=== PATIENT | male | born 1950 | race Caucasian/White ===

== ENCOUNTER → 2016-11-10 | Outpatient (REF) | payer MEDICARE, OTHER ==
[2016-11-10 12:31] LABS: ALBUMIN/GLOBULIN RATIO 1.25 (1.00-1.93); ALKALINE PHOSPHATASE 56 U/L (45-117); ALT/SGPT 19 U/L (12-78); ANION GAP 5 MEQ/L (8-16); AST/SGOT 17 U/L (15-37); BILIRUBIN,TOTAL 1.3 MG/DL (0.2-1.0); BLOOD UREA NITROGEN 13 MG/DL (7-18); CALCIUM LEVEL 8.9 MG/DL (8.8-10.2); CARBON DIOXIDE LEVEL 31 MEQ/L (21-32); CHLORIDE LEVEL 105 MEQ/L (98-107); CHOLESTEROL LEVEL 181 MG/DL (<200); CREATININE FOR GFR 1.06 MG/DL (0.70-1.30); GLOMERULAR FILTRATION RATE > 60.0 (>49); GLUCOSE, FASTING 95 MG/DL (80-110); POTASSIUM SERUM 4.4 MEQ/L (3.5-5.1); SODIUM LEVEL 141 MEQ/L (136-145); TOTAL PROTEIN 7.2 GM/DL (6.4-8.2); TRIGLYCERIDES LEVEL 104 MG/DL (<150)
[2016-11-10 12:49] LABS: BASO % 0.5 % (0.0-1.0); EOS # 0.2 K/mm3 (0.0-0.50); EOS % 3.9 % (0.0-3.0); LARGE UNSTAINED CELL # 0.1 K/mm3 (0.0-0.4); LARGE UNSTAINED CELL % 1.1 % (0.0-4.0); LYMPH # 1.6 K/mm3 (1.5-4.5); LYMPH % 36.6 % (24.0-44.0); MEAN CORPUSCULAR HEMOGLOBIN 32.3 pg (27.0-33.0); MEAN CORPUSCULAR HGB CONC 35.4 g/dl (32.0-36.5); MEAN CORPUSCULAR VOLUME 91.4 fl (80.0-96.0); MONO # 0.2 K/mm3 (0.0-0.8); MONO % 5.8 % (0.0-5.0); NEUTROPHILS # 2.2 K/mm3 (1.8-7.7); NEUTROPHILS % 52.1 % (36.0-66.0); PLATELET COUNT, AUTOMATED 157 k/mm3 (150-450); RED CELL DISTRIBUTION WIDTH 13.1 % (11.5-14.5); WHITE BLOOD COUNT 4.2 K/mm3 (4.0-10.0)
== END ==
LOC: M LABDRAW1 11:42
PROVIDERS: ATTEND Family Medicine
DX: Z00.00 Encounter for general adult medical examination without abnormal findings (principal); E78.2 Mixed hyperlipidemia

== ENCOUNTER → 2016-11-25 | Outpatient (REF) | payer MEDICARE, OTHER | LOC: M LABDRAW1 10:51 | PROVIDERS: ATTEND Family Medicine | DX: E55.9 Vitamin D deficiency, unspecified (principal) ==

== ENCOUNTER 2017-10-02 21:59 | Emergency (ER) | payer MEDICARE, OTHER ==
[2017-10-02 22:54] LABS: KETONE, URINE AUTO RFX NEGATIVE (NEGATIVE); LEUKOCYTE ESTERASE UR AUTO RFX NEGATIVE (NEGATIVE); MUCUS, URINE RFX SMALL (NEGATIVE); NITRITE, URINE AUTO RFX NEGATIVE (NEGATIVE); RBC, URINE AUTO RFX TNTC /HPF (0-3); SQUAM EPITHELIAL CELL UR AURFX 0 /HPF (0-6); WBC, URINE AUTO RFX 1 /HPF (0-3)
[2017-10-03] MEDS: MORPHINE 2 MG/ML 1ML SYRINGE (J2270) IV (00:15)
[2017-10-03] MEDS: KETOROLAC 30 MG/ML VIAL (J1885) IV (00:15)
[2017-10-03] MEDS: ONDANSETRON 4MG/2ML VIAL (J2405) IV (00:15)
[2017-10-03 00:18] LABS: BASO % 0.5 % (0.0-1.0); EOS # 0.1 10^3/uL (0.0-0.50); EOS % 1.6 % (0.0-3.0); HEMATOCRIT 40.5 % (42.0-52.0); HEMOGLOBIN 14.3 g/dl (13.5-17.5); IMMATURE GRANULOCYTE % 0.3 % (0-3.0); LYMPH # 1.2 10^3/uL (1.5-4.5); LYMPH % 14.1 % (24.0-44.0); MEAN CORPUSCULAR HEMOGLOBIN 31.8 pg (27.0-33.0); MEAN CORPUSCULAR HGB CONC 35.3 g/dl (32.0-36.5); MEAN CORPUSCULAR VOLUME 90.2 fl (80.0-96.0); MONO # 0.7 10^3/uL (0.0-0.8); MONO % 7.5 % (0.0-5.0); NEUTROPHILS # 6.7 10^3/uL (1.8-7.7); PLATELET COUNT, AUTOMATED 152 10^3/uL (150-450); RED BLOOD COUNT 4.49 10^6/uL (4.30-6.10); RED CELL DISTRIBUTION WIDTH 12.8 % (11.5-14.5); WHITE BLOOD COUNT 8.8 10^3/uL (4.0-10.0)
[2017-10-03] MEDS: NS 1,000 ML IV (00:20)
[2017-10-03 00:30] LABS: PROTHROMBIN TIME 13.3 SECONDS (12.4-14.5)
[2017-10-03 00:44] LABS: ALBUMIN 3.8 GM/DL (3.2-5.2); ALBUMIN/GLOBULIN RATIO 1.15 (1.00-1.93); ALKALINE PHOSPHATASE 68 U/L (45-117); ALT/SGPT 22 U/L (12-78); ANION GAP 7 MEQ/L (8-16); AST/SGOT 25 U/L (7-37); BILIRUBIN,DIRECT 0.2 MG/DL (0.0-0.2); BILIRUBIN,TOTAL 0.8 MG/DL (0.2-1.0); BLOOD UREA NITROGEN 18 MG/DL (7-18); CALCIUM LEVEL 8.5 MG/DL (8.8-10.2); CARBON DIOXIDE LEVEL 26 MEQ/L (21-32); CHLORIDE LEVEL 107 MEQ/L (98-107); CREATININE FOR GFR 1.66 MG/DL (0.70-1.30); GLOMERULAR FILTRATION RATE 44.1 (>49); GLUCOSE, FASTING 97 MG/DL (70-100); LIPASE 137 U/L (73-393); POTASSIUM SERUM 3.9 MEQ/L (3.5-5.1); SODIUM LEVEL 140 MEQ/L (136-145); TOTAL PROTEIN 7.1 GM/DL (6.4-8.2)
[2017-10-03] MEDS: TAMSULOSIN 0.4 MG CAP PO (01:23)
[2017-10-03] MEDS: NORCO 5/325MG TABLET (BULK FOR ED) PO (01:23)
== END 2017-10-03 01:32 | disposition home or self-care (01) ==
LOC: M ED 10-03 01:32
DX: N20.1 Calculus of ureter (principal); Z87.442 Personal history of urinary calculi; N20.0 Calculus of kidney; K80.20 Calculus of gallbladder without cholecystitis without obstruction; Z88.0 Allergy status to penicillin
CPT/HCPCS: J2405

== ENCOUNTER → 2017-10-07 | Outpatient (CLI) | payer MEDICARE ==
[2017-10-07 18:20] LABS: ANION GAP 6 MEQ/L (8-16); BLOOD UREA NITROGEN 10 MG/DL (7-18); CALCIUM LEVEL 8.7 MG/DL (8.8-10.2); CARBON DIOXIDE LEVEL 31 MEQ/L (21-32); CHLORIDE LEVEL 106 MEQ/L (98-107); CREATININE FOR GFR 1.12 MG/DL (0.70-1.30); GLOMERULAR FILTRATION RATE > 60.0 (>49); GLUCOSE, FASTING 99 MG/DL (70-100); POTASSIUM SERUM 4.5 MEQ/L (3.5-5.1); SODIUM LEVEL 143 MEQ/L (136-145)
== END ==
LOC: M SMT 13:37
DX: N17.9 Acute kidney failure, unspecified (principal)
CPT/HCPCS: 80048

== ENCOUNTER → 2017-11-11 | Outpatient (CLI) | payer MEDICARE ==
[2017-11-11 14:40] LABS: BASO % 0.5 % (0.0-1.0); EOS # 0.2 10^3/uL (0.0-0.50); EOS % 3.7 % (0.0-3.0); HEMATOCRIT 44.3 % (42.0-52.0); HEMOGLOBIN 15.3 g/dl (13.5-17.5); IMMATURE GRANULOCYTE % 0.2 % (0-3.0); LYMPH # 1.3 10^3/uL (1.5-4.5); LYMPH % 30.7 % (24.0-44.0); MEAN CORPUSCULAR HEMOGLOBIN 31.8 pg (27.0-33.0); MEAN CORPUSCULAR HGB CONC 34.5 g/dl (32.0-36.5); MEAN CORPUSCULAR VOLUME 92.1 fl (80.0-96.0); MONO # 0.3 10^3/uL (0.0-0.8); MONO % 7.3 % (0.0-5.0); NEUTROPHILS # 2.5 10^3/uL (1.8-7.7); NEUTROPHILS % 57.6 % (36.0-66.0); PLATELET COUNT, AUTOMATED 168 10^3/uL (150-450); RED BLOOD COUNT 4.81 10^6/uL (4.30-6.10); RED CELL DISTRIBUTION WIDTH 12.7 % (11.5-14.5); WHITE BLOOD COUNT 4.3 10^3/uL (4.0-10.0)
[2017-11-11 15:01] LABS: FOLATE 9.8 NG/ML; VITAMIN B12 LEVEL 276 PG/ML
[2017-11-11 15:02] LABS: ALBUMIN 4.1 GM/DL (3.2-5.2); ALBUMIN/GLOBULIN RATIO 1.14 (1.00-1.93); ALKALINE PHOSPHATASE 81 U/L (45-117); ALT/SGPT 21 U/L (12-78); ANION GAP 8 MEQ/L (8-16); AST/SGOT 21 U/L (7-37); BILIRUBIN,TOTAL 1.1 MG/DL (0.2-1.0); BLOOD UREA NITROGEN 14 MG/DL (7-18); CALCIUM LEVEL 8.8 MG/DL (8.8-10.2); CARBON DIOXIDE LEVEL 28 MEQ/L (21-32); CHLORIDE LEVEL 107 MEQ/L (98-107); CREATININE FOR GFR 1.11 MG/DL (0.70-1.30); GLOMERULAR FILTRATION RATE > 60.0 (>49); GLUCOSE, FASTING 94 MG/DL (70-100); POTASSIUM SERUM 4.3 MEQ/L (3.5-5.1); RHEUMATOID FACTOR QUANT < 10.0 IU/ML (<15.0); SODIUM LEVEL 143 MEQ/L (136-145); THYROID STIMULATING HORMONE 0.592 uIU/ML (0.358-3.740); TOTAL PROTEIN 7.7 GM/DL (6.4-8.2)
[2017-11-11 15:03] LABS: ESTIMATED AVERAGE GLUCOSE 108 MG/DL (60-110); HEMOGLOBIN A1c 5.4 %
[2017-11-11 15:10] LABS: ERYTHROCYTE SEDIMENTATION RATE 13 mm/hr (0-20)
[2017-11-16 08:06] LABS: ANTI DOUBLE STRAND-DNA AB <1 IU/mL (0-9); ANTINUCLEAR ANTIBODIES DIRECT Negative (Negative); CERULOPLASMIN 24.8 mg/dL (16.0-31.0); COPPER PLASMA 111 ug/dL (72-166); IgG P18 AB Absent (.); IgG P23 AB Absent (.); IgG P28 AB Absent (.); IgG P30 AB Absent (.); IgG P39 AB Absent (.); IgG P41 AB Absent (.); IgG P45 AB Absent (.); IgG P58 AB Absent (.); IgG P66 AB Absent (.); IgG P93 AB Absent (.); IgM P23 AB Absent (.); IgM P39 AB Absent (.); IgM P41 AB Absent (.); LEAD BLOOD ADULT 2 ug/dL (0-19); LYME IgG WB INTERPRETATION Negative (.); LYME IgM WB INTERPRETATION Negative (.); MERCURY LEVEL 1.4 ug/L (0.0-14.9); SJOGREN'S ANTI SS-A <0.2 AI (0.0-0.9); SJOGREN'S ANTI SS-B <0.2 AI (0.0-0.9); VITAMIN B1 LEVEL WHOLE BLOOD 100.4 nmol/L (66.5-200.0); VITAMIN B6,PYRIDOXAL PHOSPHATE 6.9 ug/L (5.3-46.7); VITAMIN E(ALPHA TOCOPHEROL) 10.7 mg/L (9.0-29.0); VITAMIN E(GAMMA TOCOPHEROL) 2.6 mg/L (0.5-4.9)
[2017-11-16 10:24] LABS: DRVV SCREEN 46.4 SEC
[2017-11-16 10:32] LABS: PTT LUPUS TYPE ANTICOAG SCREEN 1.1 (0-1.2)
== END ==
LOC: M SMT 09:57
DX: G62.9 Polyneuropathy, unspecified (principal); Z79.899 Other long term (current) drug therapy
CPT/HCPCS: 82525

== ENCOUNTER → 2018-10-25 | Outpatient (CLI) | payer MEDICARE ==
[~2018-10-25] MED LIST: ACETAMINOPHEN-COD; FLOM0.4C39 PO; TYLE500T78 PO
[2018-10-25 13:14] LABS: BASO % 0.9 % (0.0-1.0); EOS # 0.2 10^3/uL (0.0-0.50); EOS % 3.7 % (0.0-3.0); HEMATOCRIT 45.7 % (42.0-52.0); HEMOGLOBIN 15.4 g/dl (13.5-17.5); LYMPH # 1.5 10^3/uL (1.5-4.5); LYMPH % 35.3 % (24.0-44.0); MEAN CORPUSCULAR HEMOGLOBIN 30.9 pg (27.0-33.0); MEAN CORPUSCULAR HGB CONC 33.7 g/dl (32.0-36.5); MEAN CORPUSCULAR VOLUME 91.6 fl (80.0-96.0); MONO # 0.4 10^3/uL (0.0-0.8); MONO % 8.6 % (0.0-5.0); NEUTROPHILS # 2.2 10^3/uL (1.8-7.7); NEUTROPHILS % 51.3 % (36.0-66.0); PLATELET COUNT, AUTOMATED 171 10^3/uL (150-450); RED BLOOD COUNT 4.99 10^6/uL (4.30-6.10); WHITE BLOOD COUNT 4.3 10^3/uL (4.0-10.0)
[2018-10-25 13:34] LABS: ALBUMIN 4.2 GM/DL (3.2-5.2); ALT/SGPT 35 U/L (12-78); BILIRUBIN,TOTAL 0.9 MG/DL (0.2-1.0); BLOOD UREA NITROGEN 16 MG/DL (7-18); CALCIUM LEVEL 9.1 MG/DL (8.8-10.2); CARBON DIOXIDE LEVEL 29 MEQ/L (21-32); CHLORIDE LEVEL 104 MEQ/L (98-107); CHOLESTEROL LEVEL 221 MG/DL (<200); CHOLESTEROL RISK RATIO 5.139 (<5); CREATININE FOR GFR 1.08 MG/DL (0.70-1.30); GLOMERULAR FILTRATION RATE > 60.0 (>49); GLUCOSE, FASTING 96 MG/DL (70-100); HDL CHOLESTEROL 43 MG/DL (>40); LDL CHOLESTEROL 153 MG/DL (<100); NON-HDL-C 178 MG/DL; POTASSIUM SERUM 4.5 MEQ/L (3.5-5.1); SODIUM LEVEL 140 MEQ/L (136-145); TOTAL PROTEIN 7.6 GM/DL (6.4-8.2); TRIGLYCERIDES LEVEL 125 MG/DL (<150)
== END ==
LOC: M SMT 09:06
PROVIDERS: ATTEND Family Medicine
DX: Z00.00 Encounter for general adult medical examination without abnormal findings (principal)

== ENCOUNTER → 2019-07-27 | Outpatient (REF) | payer MEDICARE ==
[2019-07-27 12:44] LABS: BASO % 0.9 % (0.0-1.0); EOS # 0.2 10^3/uL (0.0-0.5); EOS % 4.9 % (0.0-3.0); HEMATOCRIT 42.7 % (42.0-52.0); HEMOGLOBIN 14.6 g/dl (13.5-17.5); LYMPH # 1.3 10^3/uL (1.5-5.0); LYMPH % 38.1 % (24.0-44.0); MEAN CORPUSCULAR HEMOGLOBIN 31.9 pg (27.0-33.0); MEAN CORPUSCULAR HGB CONC 34.2 g/dl (32.0-36.5); MEAN CORPUSCULAR VOLUME 93.2 fl (80.0-96.0); MONO # 0.2 10^3/uL (0.0-0.8); NEUTROPHILS # 1.7 10^3/uL (1.5-8.5); NEUTROPHILS % 48.8 % (36.0-66.0); PLATELET COUNT, AUTOMATED 161 10^3/uL (150-450); RED BLOOD COUNT 4.58 10^6/uL (4.30-6.10); WHITE BLOOD COUNT 3.4 10^3/uL (4.0-10.0)
[2019-07-27 12:45] LABS: HEMOGLOBIN A1c 5.6 %
[2019-07-27 13:14] LABS: ALBUMIN 4.1 GM/DL (3.2-5.2); ALT/SGPT 20 U/L (12-78); BILIRUBIN,TOTAL 1.2 MG/DL (0.2-1.0); BLOOD UREA NITROGEN 9 MG/DL (7-18); CALCIUM LEVEL 9.3 MG/DL (8.8-10.2); CARBON DIOXIDE LEVEL 29 MEQ/L (21-32); CHLORIDE LEVEL 105 MEQ/L (98-107); CHOLESTEROL LEVEL 190 MG/DL (<200); CHOLESTEROL RISK RATIO 4.042 (<5); CREATININE FOR GFR 1.01 MG/DL (0.70-1.30); FREE T4 1.06 NG/DL (0.76-1.46); GLOMERULAR FILTRATION RATE > 60.0 (>42); GLUCOSE, FASTING 98 MG/DL (70-100); HDL CHOLESTEROL 47 MG/DL (>40); LDL CHOLESTEROL 128 MG/DL (<100); NON-HDL-C 143 MG/DL; POTASSIUM SERUM 4.3 MEQ/L (3.5-5.1); SODIUM LEVEL 139 MEQ/L (136-145); THYROID STIMULATING HORMONE 0.651 uIU/ML (0.358-3.740); TOTAL PROTEIN 7.3 GM/DL (6.4-8.2); TRIGLYCERIDES LEVEL 76 MG/DL (<150)
[2019-08-01 00:06] LABS: PSA TOTAL 0.5 ng/mL (0.0-4.0); VITAMIN D 1,25 DIHYDROXY 39.1 pg/mL (19.9-79.3)
== END ==
LOC: M LABDRAW1 09:35
PROVIDERS: ATTEND Physician Assistant
DX: R39.11 Hesitancy of micturition (principal); Z13.220 Encounter for screening for lipoid disorders; Z79.899 Other long term (current) drug therapy

== ENCOUNTER 2020-08-12 08:43 | Emergency (ER) | payer MEDICARE ==
[~2020-08-12] VITALS: Ht 177.8 cm; Wt 93.2 kg
[2020-08-12] MEDS ORDERED: ONDANSETRON 4MG/2ML VIAL IV ONE (09:40)
[2020-08-12] MEDS ORDERED: NS 1,000 ML IV SCH (09:40)
[2020-08-12] MEDS ORDERED: MORPHINE 4 MG/ML 1ML VIAL/SYRINGE (J2270) IV PRN (09:40)
[2020-08-12] MEDS ORDERED: KETOROLAC 30 MG/ML 1ML VIAL IV ONE (09:55)
--- NOTE | 2020-08-12 10:13 | REP ---
INDICATION: left renal colic. COMPARISON: Abdomen/pelvis CT of 10/02/2017. TECHNIQUE: Abdomen/pelvis CT without IV or bowel contrast. FINDINGS: On the study today there is a single nonobstructive left renal calculus. On the comparison study there are least 3 nonobstructive left renal calculi. There is left hydronephrosis and hydroureter as a change from the prior study. However, I am unable to identify a definite intraluminal left ureteral calculus today there are numerous calcifications posterolateral to the bladder in the pelvis, likely phleboliths and similar in the number and position to the prior study. I cannot find a definite intraluminal distal left ureteral calculus today. It may be that there will was a calculus that has passed. There are no bladder calculi. The hydronephrosis and hydroureter on the left could be from distal left ureteral spasm. A follow-up CT urogram with IV contrast might be worthwhile identifying the distal left ureter in relation to the pelvic calcifications. There are no right renal calculi today. The comparison study a suspect there were 2 tiny right renal calculi. These are no longer identified. There is no hydro no for fro cysts or hydroureter on the right. No right ureteral calculus is identified. The visualized lung gu are unremarkable. The unenhanced hepatic parenchyma is unremarkable. There are noncalcified gallbladder calculi as previously. The gallbladder is otherwise unremarkable. Pancreas, spleen, adrenals and abdominal aorta are unremarkable. The bowel and mesentery are unremarkable. Pelvis: There are occasional diverticula in the ascending colon and descending colon and sigmoid colon without CT evidence of diverticulitis. There is no pelvic ascites or adenopathy. The prostate appears enlarged, unchanged. IMPRESSION: Left hydronephrosis and hydroureter. I am unable to identify an intra ureteral calculus on the left. There are numerous phleboliths in the pelvis obscuring visualization. If felt clinically indicated, consider a CT urogram with IV contrast to better identify the distal left ureter in relation to the pelvic phleboliths. There are nonobstructive renal calculi as described. Cholelithiasis, unchanged. Diverticulosis without diverticulitis. <Electronically signed by Kuldip Muse > 08/12/20 [id number]
[2020-08-12] MEDS ORDERED: ISOVUE-370 76% 100ML VIAL As Ordered ONE (11:39)
--- NOTE | 2020-08-12 12:59 | REP ---
INDICATION: left urogram for HU/HN. COMPARISON: CT abdomen pelvis without IV contrast performed earlier today and CT abdomen pelvis without IV contrast dated 10/02/2017. TECHNIQUE: CT abdomen and pelvis with IV contrast, CT urogram protocol. FINDINGS: Contrast is identified on the current study within the renal calices and proximal and mid ureters bilaterally. However, there is no contrast in the distal left ureter there are 4 I am unable to identify the left ureter in relation to the multiple phleboliths in the pelvis as on the study previously today. The left ureter is again dilated and there is a left renal hydronephrosis. Therefore, I am again unable to determine if there is a calculus in the distal left ureter or if there is a stricture or spasm of the distal left ureter. Otherwise, there is no change from the study performed earlier today. IMPRESSION: There is again no intraluminal contrast in the distal left ureter on the CT urogram, therefore, I am unable to determine if there is a distal left ureteral calculus or if the left hydroureter is from fibrosis or spasm of the distal left ureter. This may require a retrograde pyelogram. <Electronically signed by Kuldip Muse > 08/12/20 [id number]
[2020-08-12] MEDS ORDERED: FLOM0.4C39 PO (13:32)
[2020-08-12] MEDS ORDERED: HYDR-3713 PO (13:32)
[2020-08-12] MEDS ORDERED: ONDA4TAB6 PO (13:32)
--- NOTE | 2020-08-12 13:45 | ED PDOC ---
Post-Departure Follow-Up neelima suggs and isadora faxed formal report of ct abd/p for fu Arian Hodges MD Aug 12, 2020 13:45
[2020-08-12 14:10] VITALS: BP 128/77
== END 2020-08-12 14:16 | disposition home or self-care (01) ==
LOC: M ED 08:43
DX: N20.1 Calculus of ureter (principal); R11.2 Nausea with vomiting, unspecified; K57.90 Diverticulosis of intestine, part unspecified, without perforation or abscess without bleeding; Z87.442 Personal history of urinary calculi; Z88.0 Allergy status to penicillin
CPT/HCPCS: 74176; 74177; 80047; 81001; 96361; 96374; 96375; 99283; J1885; J2270; J2405; Q9967

== ENCOUNTER 2020-08-14 07:42 | Observation (INO) | payer MEDICARE ==
[~2020-08-14] VITALS: Ht 177.8 cm; Wt 94.0 kg
[~2020-08-14 07:42] MED LIST changes: +HYDR-3713 PO; +ONDA4TAB6 PO
[2020-08-14] MEDS ORDERED: NS 1,000 ML IV ONE (08:15)
[2020-08-14] MEDS ORDERED: KETOROLAC 30 MG/ML 1ML VIAL IV ONE (08:15)
[2020-08-14] MEDS ORDERED: ONDANSETRON 4MG/2ML VIAL IV ONE (08:15)
[2020-08-14 08:35] LABS: BASO % 0.2 % (0.0-1.0); EOS % 0.5 % (0.0-3.0); HEMATOCRIT 41.6 % (42.0-52.0); HEMOGLOBIN 14.6 g/dl (13.5-17.5); LYMPH # 1.1 10^3/uL (1.5-5.0); LYMPH % 12.3 % (24.0-44.0); MEAN CORPUSCULAR HEMOGLOBIN 31.9 pg (27.0-33.0); MEAN CORPUSCULAR HGB CONC 35.1 g/dl (32.0-36.5); MEAN CORPUSCULAR VOLUME 90.8 fl (80.0-96.0); MONO % 6.1 % (2.0-8.0); NEUTROPHILS % 80.6 % (36.0-66.0); PLATELET COUNT, AUTOMATED 152 10^3/uL (150-450); RED BLOOD COUNT 4.58 10^6/uL (4.30-6.10); WHITE BLOOD COUNT 8.7 10^3/uL (4.0-10.0)
[2020-08-14 08:36] LABS: MONO # 0.5 10^3/uL (0.0-0.8)
[2020-08-14 08:59] LABS: ALBUMIN 3.8 GM/DL (3.2-5.2); BILIRUBIN,DIRECT 0.3 MG/DL (0.0-0.2); TOTAL PROTEIN 6.9 GM/DL (6.4-8.2)
--- NOTE | 2020-08-14 09:19 | REP ---
INDICATION: pain/swelling. COMPARISON: None. TECHNIQUE: High-resolution bilateral scrotal sonography. Doppler interrogation. FINDINGS: High-resolution scrotal sonography demonstrates no evidence of intratesticular mass lesion on either side. Testicular parenchyma is normal homogeneous. Right testis measures 5.1 x 2.5 x 3.6 cm. Left testicular dimensions are 4.8 x 2.6 x 3.4 cm. The right epididymis is unremarkable. There are multiple small epididymal cysts on the left the largest of which is 0.4 cm in greatest diameter. Testicular Doppler flow is preserved. Resistive indices in the testicles are 0.72 and 0.62 on the right and left respectively. There are some prominent venous channels in the left scrotum. These do not appear to dilate with Valsalva but may be a small left-sided varicocele. IMPRESSION: Possible small left-sided varicocele. Otherwise negative high-resolution bilateral scrotal sonography. Small epididymal cysts on the left noted incidentally. <Electronically signed by Orlin Pérez > 08/14/20 [id number]
--- NOTE | 2020-08-14 10:42 | REP ---
INDICATION: left calculus? still has pain. COMPARISON: Abdomen/pelvis CT studies dated 08/12/2020. TECHNIQUE: Multiple sonographic images of the kidneys and bladder. FINDINGS: The right kidney measures 10.0 x 4.9 x 5.3 cm. Left kidney measures 11.4 x 6.7 x 6.9 cm. The kidneys are normal size. Renal cortical echogenicity is normal bilaterally. There is no hydronephrosis on the right. There is hydronephrosis on the left, similar to the comparison CT studies. There are no renal cysts or masses. No renal calculi are identified by ultrasound. However, on the comparison CT studies there was a nonobstructive left renal calculus. No calculi are identified in the distal left ureter by ultrasound. There is question of a calculus in the proximal left ureter by ultrasound, however, no calculi are identified in the proximal left ureter on the comparison CT studies. The Doppler resistive index of the parenchymal arteries of the right kidney is 0.53 left kidney 0.57. Bladder: With color Doppler imaging neither the right nor the left ureteral jet could be identified into the bladder. No bladder wall nodules or masses are identified. IMPRESSION: Left hydronephrosis and hydroureter. No distal left ureteral calculus is identified by ultrasound. There is question of a calculus in the proximal left ureter by ultrasound, however, no calculus was identified in the proximal left ureter on the comparison CT studies. With Doppler ultrasound neither the right nor the left ureteral jet into the bladder could be identified. <Electronically signed by Kuldip Muse > 08/14/20 [id number]
[2020-08-14] MEDS ORDERED: ISOVUE-370 76% 100ML VIAL As Ordered ONE (11:20)
--- NOTE | 2020-08-14 12:11 | REP ---
INDICATION: with delayed images COMPARISON: 08/12/2020. TECHNIQUE: CT Scan of the abdomen and pelvis was performed with intravenous administration of 100 cc of Isovue 370, without oral contrast. Sagittal and coronal reconstruction images are performed. Images are obtained in the delayed excretory phase following contrast administration. FINDINGS: Lung bases: Unremarkable. Liver: Normal Gallbladder: The gallbladder is distended and contains gallstones.. Spleen: Normal. Adrenals: Normal. Pancreas: Normal. Kidneys: 2 subcentimeter cysts are seen in the mid right kidney without hydronephrosis. There is no contrast excretion into the left ureter. There is moderate left hydronephrosis and hydroureter. A small amount of contrast is seen in the left pelvocaliceal system. A small cyst is seen in the lower pole the left kidney. There is a 5 mm calculus in the distal left ureter.. Small and large bowel: There are multiple diverticula seen throughout the colon without evidence of bowel wall inflammation. Free fluid: None. Abdominal aorta: No aneurysm or dissection. Adenopathy: None. Appendix: Not inflamed. Osseous structures: Unremarkable. Pelvis: No mass. IMPRESSION: There is a 5 mm calculus in the distal left ureter causing moderate left hydroureteronephrosis. <Electronically signed by Kuldip Quintanilla > 08/14/20 1407
[2020-08-14] MEDS ORDERED: D5W/0.9% SODIUM CHLORIDE 1,000 ML IV SCH (12:29)
[2020-08-14] MEDS ORDERED: ONDANSETRON 4MG/2ML VIAL IV PRN ×2 (12:30→23:00)
[2020-08-14] MEDS ORDERED: KETOROLAC 30 MG/ML 1ML VIAL IV PRN (12:30)
[2020-08-14] MEDS ORDERED: MORPHINE 4 MG/ML 1ML VIAL/SYRINGE (J2270) IV PRN (12:30)
[2020-08-14] MEDS ORDERED: FLOM0.4C39 PO (12:37)
[2020-08-14] MEDS ORDERED: HYDR-3713 PO (12:37)
[2020-08-14] MEDS ORDERED: ONDA4TAB6 PO (12:37)
[2020-08-14 13:16] LABS: RSV AMPLIFICATION NEGATIVE (NEGATIVE)
[2020-08-14 15:20] VITALS: BP 113/93
--- NOTE | 2020-08-14 16:24 | HPEPDOC ---
General Date of Admission 08/14/20 Date of Service: Aug 14, 2020 Chief Complaint The patient is a 70-year-old male admitted with a reason for visit of Abd/Back Pain. Source: Patient, RN/MD History of Present Illness 70 year old male with h/o kidney stones on his right presented to the ED initially on 08/13/20 for left flank pain. He felt like he was having a kidney stone. CT scans then did not demonstrate the stone clearly . He was discharged home with flomax and norco. At home he took the pain meds as directed but it did not control the pain so he came back to the ED. Today at presentation his pain was 10/10, sharp crampy at the left lower quadrant and he was writhing in pain all over the bed. he recieved morphine and toradol with much improvement in pain . At my interview he just complained of a dull achiness at the left lower quadrant. He also complained of constipation. CT urogram showed There is a 5 mm calculus in the distal left ureter causing moderate left hydroureteronephrosis. he was admitted for renal colic with left ureteral stone causing left hydro nephrosis. Home Medications Scheduled Tamsulosin HCl (Flomax) 0.4 Mg Capsule, 0.4 MG PO DAILY, (Reported) Scheduled PRN Hydrocodone/Acetaminophen (Hydrocodone-Acetamin 5-325 mg) 1 Each Tablet, 1 TAB PO Q4H PRN for PAIN, (Reported) MDD 4 Ondansetron (Ondansetron Odt) 4 Mg Tab.rapdis, 4 MG PO Q6H PRN for NAUSEA OR VOMITING, (Reported) Allergies Coded Allergies: Penicillins (Verified Allergy, Intermediate, HIVES, 08/14/20) Past Medical History Medical History Kidney stones, HLD Surgical History Lumber Laminectomy skin cancer removal from left foot planter aspect, right inguinal hernia repair with mesh Family History Significant Family History: Heart disease (father) Social History * Smoker: former Smoker Alcohol: rarely Drugs: denies A-FIB/CHADSVASC A-FIB History Current/History of A-Fib/PAF?: No Review of Systems Constitutional: Denies: Chills, Fever, Night Sweats Eyes: Denies: Pain, Vision change ENT: Denies: Head Aches, Ear Pain, Dysphagia Skin: Denies: Rash, Lesions, Breakdown Pulmonary: Denies: Dyspnea, Cough Cardiovascular: Denies: Chest Pain, Palpitations, Orthopnea, Paroxysmal Noc. Dyspnea, Lt Headedness Gastrointestinal: Reports: Nausea, Abdominal Pain, Constipation Genitourinary: Denies: Dysuria, Frequency, Incontinence, Retention Physical Examination General Exam: Positive: Alert, Cooperative, No Acute Distress Eye Exam: Positive: PERRLA, Conjunctiva & lids normal, EOMI; Negative: Sclera icteric ENT Exam: Positive: Atraumatic, Mucous membr. moist/pink, Pharynx Normal Neck Exam: Positive: Supple; Negative: JVD, thyromegaly Chest Exam: Positive: Clear to auscultation, Normal air movement Heart Exam: Positive: Rate Normal, Regular Rhythm, Normal S1, Normal S2; Negative: Murmurs, Rubs Abdomen Exam: Positive: Normal bowel sounds, Soft, Tenderness (int he left lumber and left lower quadrant); Negative: Hepatospenomegaly Extremity Exam: Negative: Clubbing, Cyanosis, Edema Vital Signs Vital Signs Date Time Temp Pulse Resp B/P (MAP) Pulse Ox O2 Delivery O2 Flow Rate FiO2 08/14/20 12:32 97.7 63 22 142/68 (92) 97 Room Air Laboratory Data Labs 24H Laboratory Tests 2 08/14/20 08:20: Immature Granulocyte % (Auto) 0.3, Neutrophils (%) (Auto) 80.6H, Lymphocytes (%) (Auto) 12.3L, Monocytes (%) (Auto) 6.1, Eosinophils (%) (Auto) 0.5, Basophils (%) (Auto) 0.2, Neutrophils # (Auto) 7.0, Lymphocytes # (Auto) 1.1L, Monocytes # (Auto) 0.5, Eosinophils # (Auto) 0.0, Basophils # (Auto) 0.0, Nucleated Red Blood Cells % (auto) 0.0, Total Bilirubin 1.0, Direct Bilirubin 0.3H, Aspartate Amino Transf (AST/SGOT) 15, Alanine Aminotransferase (ALT/SGPT) 17, Alkaline Phosphatase 65, Total Protein 6.9, Albumin 3.8, Albumin/Globulin Ratio 1.2, Lipase 101 08/14/20 08:40: POC Glucose (Misc Panel) 122H, POC Sodium (Misc Panel) 141, POC Potassium (Misc Panel) 3.4L, POC Chloride (Misc Panel) 104, POC Total CO2 (Misc Panel) 24.0, POC Blood Urea Nitrogen (Misc Panel 14, POC Ionized Calcium (Misc Panel) 4.5, POC Creatinine (Misc Panel) 1.3, POC Hematocrit (Misc Panel) 41.0 08/14/20 08:49: Urine Color YELLOW, Urine Appearance CLEAR, Urine pH 5.0, Urine Specific [place] 1.015, Urine Protein NEGATIVE, Urine Glucose (UA) NEGATIVE, Urine Ketones TRACEH, Urine Blood 2+H, Urine Nitrite NEGATIVE, Urine Bilirubin NEGATIVE, Urine Urobilinogen 0.2, Urine Leukocyte Esterase NEGATIVE, Urine WBC (Auto) 2, Urine RBC (Auto) 5H, Urine Hyaline Casts (Auto) 0, Urine Bacteria (Auto) NEGATIVE, Urine Squamous Epithelial Cells 1, Urine Mucus (Auto) SMALL, Urine Sperm (Auto) CBC/BMP Laboratory Tests 08/14/20 08:20 Assessment/Plan 70 year old male with h/o kidney stones on his right presented to the ED initially on 08/13/20 for left flank pain. He felt like he was having a kidney stone. CT scans then did not demonstrate the stone clearly . He was discharged home with flomax and norco. At home he took the pain meds as directed but it did not control the pain so he came back to the ED. Today at presentation his pain was 10/10, sharp crampy at the left lower quadrant and he was writhing in pain all over the bed. he recieved morphine and toradol with much improvement in pain . At my interview he just complained of a dull achiness at the left lower quadrant. He also complained of constipation. CT urogram showed There is a 5 mm calculus in the distal left ureter causing moderate left hydroureteronephrosis. he was admitted for renal colic with left ureteral stone causing left hydronephrosis. Left ureteric stone with left hydropnephrosis pain control with morphine and toradol, NPO, IVF Dr Reese from Urology has been consulted. Plan / VTE VTE Prophylaxis Ordered?: Yes SANDRA OLIVO MD Aug 14, 2020 12:40
--- NOTE | 2020-08-14 17:49 | SMCUROLCON ---
Urology Consultation General Date of Consultation 08/14/20 Reason For Consultation This patient is seen for Hydronephrosis Of Left Kidney Obstructive Uropathy and distal left ureteral calculus History of Present Illness The patient is a 70-year-old male with a past medical history for right-sided renal calculi. He began having pain on the left flank and back area about 4 days ago after doing some work outside. He states that the pain continued to increase and finally presented to the emergency room where he was diagnosed with a hydronephrosis and no stone was seen at that time. He was sent home with osei jean baptiste but returned because of persistent and still worsening pain. This time I was contacted and a delayed CT was performed showing a distal left ureteral calculus with obstruction and hydronephrosis. Past Medical History Medical History Renal calculi Hyperlipidemia Surgical Hstory Skin cancer removal from left foot Right inguinal hernia repair Laminectomy Social History * Smoker: non-smoker Drugs: denies Medications Current Medications Current Medications Medications (Trade) Dose Ordered Sig/Gale Route PRN Reason Start Time Stop Time Status Last Admin Dose Admin Dextrose/Sodium Chloride 1,000 ml @ 100 mls/hr Q10H IV 08/14/20 12:29 08/14/20 13:16 Home Med (Med Rec Complete!) ASDIRECTED XX 08/14/20 12:40 08/14/20 12:40 DC Ketorolac Tromethamine (ToRADol) 15 mg Q6H PRN IV MILD/MODERATE PAIN (PS 1-7) 08/15/20 00:00 08/20/20 00:00 Ketorolac Tromethamine (ToRADol) 30 mg Q6H PRN IV MILD/MODERATE PAIN (PS 1-7) 08/14/20 12:30 08/14/20 23:59 Morphine Sulfate (Morphine Sulfate Inj) 4 mg Q4HP PRN IV SEVERE PAIN (PS 8-10) 08/14/20 12:30 Ondansetron HCl (ZOFRAN INJection) 4 mg Q4HP PRN IV NAUSEA OR VOMITING 08/14/20 12:30 08/14/20 13:28 Allergies Allergies: Coded Allergies: Penicillins (Verified Allergy, Intermediate, HIVES, 08/14/20) Review of Systems General: Reports: Normal Appetite; Denies: Fatigue, Malaise Constitutional: Denies: Fever, Chills, Sweats, Weakness, Malaise Eyes: Denies: Pain, Vision change ENT: Denies: Head Aches, Sore Throat, Epistaxis Skin: Denies: Rash, Lesions, Breakdown, Nail Changes Pulmonary: Denies: Dyspnea, Cough Cardiovascular: Denies Chest Pain, Denies Palpitations, Denies Orthopnea, Denies Paroxysmal Noc. Dyspnea, Denies Edema, Denies Lt Headedness, Denies Other Symptoms Gastrointestinal: Denies: Nausea, Vomiting, Abdominal Pain Genitourinary: Denies: Dysuria, Frequency, Incontinence, Hematuria Hematologic: Denies: Bruising, Bleeding Excessively Endocrine: Denies: Polydipsia, Polyphagia, Polyuria Musculoskeletal: Denies: Neck Pain, Back Pain Neurological: Denies: Weakness, Numbness, Incoordination, Change in Speech Psych: Reports: Mood Normal; Denies: Anxiety, Depression Physical Examination General Exam: Alert, No Acute Distress EYE EXAM: PERRLA, Conjunctiva & lids normal, EOMI; No: Sclera icteric ENT EXAM: Atraumatic, Mucous membr. moist/pink, Pharynx Normal Neck Exam: Supple; No: JVD, thyromegaly Chest Exam: Clear to auscultation, Normal air movement Heart Exam: Rate Normal, Regular Rhythm, Normal S1, Normal S2; No: Murmurs, Rubs Abdomen Exam: Normal Bowel Sounds, Soft; No: Tenderness, Hepatospenomegaly Male Exam: Normal Genital Exam Extremity Exam: Normal Pulses; No: Clubbing, Cyanosis, Edema Skin Exam: Nl turgor and temperature; No: Rash, Breakdown Neuro Exam: Normal Gait, Normal Speech, Cranial Nerves 3-12 NL, Reflexes 2+ Psych Exam: Mental status NL, Mood NL, Oriented x 3 Vital Signs/I&O Vital Signs Date Time Temp Pulse Resp B/P (MAP) Pulse Ox O2 Delivery O2 Flow Rate FiO2 08/14/20 15:20 97.4 63 18 113/93 (100) 98 Room Air Laboratory Data 24H Labs Laboratory Tests 2 08/14/20 08:20: Immature Granulocyte % (Auto) 0.3, Neutrophils (%) (Auto) 80.6H, Lymphocytes (%) (Auto) 12.3L, Monocytes (%) (Auto) 6.1, Eosinophils (%) (Auto) 0.5, Basophils (%) (Auto) 0.2, Neutrophils # (Auto) 7.0, Lymphocytes # (Auto) 1.1L, Monocytes # (Auto) 0.5, Eosinophils # (Auto) 0.0, Basophils # (Auto) 0.0, Nucleated Red Blood Cells % (auto) 0.0, Total Bilirubin 1.0, Direct Bilirubin 0.3H, Aspartate Amino Transf (AST/SGOT) 15, Alanine Aminotransferase (ALT/SGPT) 17, Alkaline Phosphatase 65, Total Protein 6.9, Albumin 3.8, Albumin/Globulin Ratio 1.2, Lipase 101 08/14/20 08:40: POC Glucose (Misc Panel) 122H, POC Sodium (Misc Panel) 141, POC Potassium (Misc Panel) 3.4L, POC Chloride (Misc Panel) 104, POC Total CO2 (Misc Panel) 24.0, POC Blood Urea Nitrogen (Misc Panel 14, POC Ionized Calcium (Misc Panel) 4.5, POC Creatinine (Misc Panel) 1.3, POC Hematocrit (Misc Panel) 41.0 08/14/20 08:49: Urine Color YELLOW, Urine Appearance CLEAR, Urine pH 5.0, Urine Specific [place] 1.015, Urine Protein NEGATIVE, Urine Glucose (UA) NEGATIVE, Urine Ketones TRA CEH, Urine Blood 2+H, Urine Nitrite NEGATIVE, Urine Bilirubin NEGATIVE, Urine Urobilinogen 0.2, Urine Leukocyte Esterase NEGATIVE, Urine WBC (Auto) 2, Urine RBC (Auto) 5H, Urine Hyaline Casts (Auto) 0, Urine Bacteria (Auto) NEGATIVE, Urine Squamous Epithelial Cells 1, Urine Mucus (Auto) SMALL, Urine Sperm (Auto) 08/14/20 12:31: Coronavirus (COVID-19)(PCR) NEGATIVE, Influenza Type A (RT-PCR) NEGATIVE, Influenza Type B (RT-PCR) NEGATIVE, Respiratory Syncytial Virus (PCR) NEGATIVE CBC/BMP Laboratory Tests 08/14/20 08:20 Assessment Obstructing distal left ureteral calculus Plan I discussed the options with the patient including observation, continued trying to pass the stone spontaneously or ureteroscopic intervention. He preferred to have ureteroscopy today to remove the stone because of the pain level. The advantages, alternatives, disadvantages and possible complications of infection, pain, bleeding, perforation and strictures were discussed. The stent will be inserted to be removed in the office in 2 weeks. Repeat these stipulations and understanding the possible complications and wishes to continue with the procedure. Time Spent on Consult: Time Spent / Consult (Minutes): 70 UMESH TAM MD Aug 14, 2020 17:49
[2020-08-14 20:25] VITALS: BP 160/77
[2020-08-14] MEDS ORDERED: propofoL 200 MG/20 ML VIAL As Ordered ONE (20:53)
[2020-08-14] MEDS ORDERED: LIDOCAINE 2% 100MG/5ML SDV (FOR ANES.) As Ordered ONE (20:53)
[2020-08-14] MEDS ORDERED: fentaNYL 100 MCG/2 ML INJECTION (J3010) As Ordered ONE (20:54)
[2020-08-14] MEDS ORDERED: MIDAZOLAM INJ 2MG/2ML VIAL (J2250 PER 1MG) As Ordered ONE (20:54)
[2020-08-14] MEDS ORDERED: CONRAY-60 60% 50ML VIAL (Q9961) As Ordered ONE (21:24)
[2020-08-14] MEDS ORDERED: dexameTHASONE 4 MG/ML 1ML VIAL (J1100 PER 1MG) As Ordered ONE (21:24)
[2020-08-14] MEDS ORDERED: ONDANSETRON 4MG/2ML VIAL As Ordered ONE (21:24)
[2020-08-14] MEDS ORDERED: ACETAMINOPHEN 1000MG 100ML IV BTL (OFIRMEV) (J0131 PER 10MG) As Ordered ONE (21:32)
[2020-08-14] MEDS ORDERED: ePHEDrine SULFATE 25 MG/5 ML(5MG/ML) SYRINGE As Ordered ONE (21:34)
[2020-08-14] MEDS ORDERED: ceFAZolin 2 GM/D5W 50 ML IV BAG (J0690 PER 500MG) As Ordered ONE (21:43)
--- NOTE | 2020-08-14 22:43 | ROOPDOC ---
[facility] Report Of Operation Report of Operation DATE OF PROCEDURE: 08/14/20 PREPROCEDURE DIAGNOSES: Left ureteral calculus POSTPROCEDURE DIAGNOSES: Same plus Bladder Tumor PROCEDURE: Cystoscopy, left retrograde pyelogram, ureteral dilation with Tylenol access sheath, ureteroscopic stone extraction, ureteral stent insertion, bladder biopsy with fulguration, fluoroscopy and x-ray interpretation SURGEON: Francois Reese MD NURSE MANAGER: None ANESTHESIA: Gen. ESTIMATED BLOOD LOSS: Approximately 5 mL. 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 He also had a very tight left ureteral orifice. PROCEDURE NOTE: . The procedure is indicated because patient was having recurrent strong bouts of pain from the left ureteral calculus DESCRIPTION OF PROCEDURE: Patient was placed on the table in supine position and given general anesthesia. He was then placed in lithotomy position, prepped with Betadine paint and draped in an aseptic manner. A timeout was then performed. A #21 [place] cystoscope was then inserted into the meatus and advanced under direct vision of a 30 lens to the bladder. Ureteral orifices were identified in the left ureteral orifice appeared small. At that same time, some raised, dc-colored tissue was identified lateral and superior to the left ureteral orifice. Upon closer examination, this was identified to be a transitional cell carcinoma. The rest of the bladder was then surveyed and no further tumor was found. A wire guide was then introduced into the left ureteral orifice. A second wire was attempted to be passed but because of the narrow lumen, this could not be accomplished. The ureteral orifice was then dilated with a tunnel dilator over this wire. The wire was then removed and a flexible ureteroscope was passed through the tunnel. The stone was encountered in the upper part of the distal ureter. He was trapped in a wire and successfully extracted intact. A short ureteroscope was then used to reinsert the wire and the scope was then removed. The cystoscope was passed over the wire and a 5 [place] double-J stent was passed over the wire which curled well in the renal pelvis and in the bladder when the wire was removed. A biopsy cup was then used to remove the tumor lateral to the orifice and the area was widely cauterized with a Bugbee cautery. The bladder was then drained, cystoscope was removed and the patient was awakened and sent to recovery room stable condition having tolerated the procedure well. Fluoroscopy was used throughout the case to identify the stone and place the instruments and stent. The stent can be removed in 2 weeks. FRANCOIS REESE MD Aug 14, 2020 22:42
[2020-08-14 22:45] VITALS: BP 141/74
[2020-08-14] MEDS ORDERED: LR 1,000 ML IV SCH ×2 (23:00→23:10)
[2020-08-14] MEDS ORDERED: oxyCODONE 5MG TAB PO PRN (23:00)
[2020-08-14] MEDS ORDERED: fentaNYL 100 MCG/2 ML INJECTION (J3010) IV PRN (23:00)
[2020-08-14] MEDS ORDERED: NORCO, ANEXSIA 5/325MG TABLET (HYDROcodone/ACETAMINOPHEN) PO PRN (23:10)
[2020-08-14 23:45] VITALS: BP 141/74
[2020-08-15] MEDS ORDERED: KETOROLAC 30 MG/ML 1ML VIAL IV PRN
[2020-08-15 00:15] VITALS: BP 131/70
[2020-08-15 04:45] VITALS: BP 116/59
[2020-08-15 07:04] LABS: ALBUMIN 3.6 GM/DL (3.2-5.2); ALT/SGPT 15 U/L (12-78); BILIRUBIN,TOTAL 0.9 MG/DL (0.2-1.0); BLOOD UREA NITROGEN 11 MG/DL (7-18); CALCIUM LEVEL 8.7 MG/DL (8.8-10.2); CARBON DIOXIDE LEVEL 24 MEQ/L (21-32); CHLORIDE LEVEL 109 MEQ/L (98-107); GLOMERULAR FILTRATION RATE > 60.0 (>42); GLUCOSE, FASTING 123 MG/DL (70-100); POTASSIUM SERUM 4.1 MEQ/L (3.5-5.1); SODIUM LEVEL 140 MEQ/L (136-145); TOTAL PROTEIN 6.9 GM/DL (6.4-8.2)
--- NOTE | 2020-08-15 08:33 | REP ---
INDICATION: LEFT URETERAL STONE. COMPARISON: Comparison CT study from earlier this date.. TECHNIQUE: Two views. 41 seconds of fluoroscopy time is reported. FINDINGS: A sequence of 2 last image hold fluoroscopically obtained spot radiographs of the abdomen document left ureteral cannulation and double-pigtail stent placement. IMPRESSION: Procedural imaging. <Electronically signed by Orlin Pérez > 08/15/20 [id number]
--- NOTE | 2020-08-15 11:44 | IPNPDOC ---
Subjective Date Seen The patient was seen on 08/15/20. Subjective Chief Complaint/HPI no complaints this morning except for hematuria as expected. Pain is controlled. ready to go home. Objective Physical Examination General Exam: Positive: Alert, Cooperative, No Acute Distress Eye Exam: Positive: PERRLA, Conjunctiva & lids normal, EOMI; Negative: Sclera icteric ENT Exam: Positive: Atraumatic, Mucous membr. moist/pink, Pharynx Normal Neck Exam: Positive: Supple; Negative: JVD, thyromegaly Chest Exam: Positive: Clear to auscultation, Normal air movement Heart Exam: Positive: Rate Normal, Regular Rhythm, Normal S1, Normal S2; Negative: Murmurs, Rubs Abdomen Exam: Positive: Normal bowel sounds, Soft, Tenderness (int he left lumber and left lower quadrant); Negative: Hepatospenomegaly Extremity Exam: Negative: Clubbing, Cyanosis, Edema Assessment /Plan Assessment 70 year old male with h/o kidney stones on his right presented to the ED initially on 08/13/20 for left flank pain. He felt like he was having a kidney stone. CT scans then did not demonstrate the stone clearly . He was discharged home with flomax and norco. At home he took the pain meds as directed but it did not control the pain so he came back to the ED. Today at presentation his pain was 10/10, sharp crampy at the left lower quadrant and he was writhing in pain all over the bed. he recieved morphine and toradol with much improvement in pain . At my interview he just complained of a dull achiness at the left lower quadrant. He also complained of constipation. CT urogram showed There is a 5 mm calculus in the distal left ureter causing moderate left hydroureteronephrosis. he was admitted for renal colic with left ureteral stone causing left hydronephrosis. Left ureteric stone with left hydronephrosis has h/o renal stones for years. S/p Cystoscopy, left retrograde pyelogram, ureteral dilation with Tylenol access sheath, ureteroscopic stone extraction, ureteral stent insertion, bladder biopsy with fulguration, fluoroscopy and x-ray interpretation follow up with urology in 2 weeks for stent removal and biopsy results and stone results. Pain control with [place]. continue flomax. 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 follow up urology HLD not on any meds KRISTEL mild was never prescribed CPAP. Plan/VTE VTE Prophylaxis Ordered?: Yes VS, I&O, 24H, Fishbone Vital Signs/I&O Vital Signs Date Time Temp Pulse Resp B/P (MAP) Pulse Ox O2 Delivery O2 Flow Rate FiO2 08/15/20 04:45 97.7 71 18 116/59 (78) 96 Room Air I&O- Last 24 Hours up to 6 AM 08/15/20 06:00 Intake Total 2400 ml Balance 2400 ml Laboratory Data 24H LABS Laboratory Tests 2 08/14/20 12:31: Coronavirus (COVID-19)(PCR) NEGATIVE, Influenza Type A (RT-PCR) NEGATIVE, Influenza Type B (RT-PCR) NEGATIVE, Respiratory Syncytial Virus (PCR) NEGATIVE 08/14/20 22:07: 08/15/20 06:13: Anion Gap 7L, Glomerular Filtration Rate > 60.0, Calcium Level 8.7L, Total Bilirubin 0.9, Aspartate Amino Transf (AST/SGOT) 17, Alanine Aminotransferase (ALT/SGPT) 15, Alkaline Phosphatase 65, Total Protein 6.9, Albumin 3.6, Albumin/Globulin Ratio 1.1 CBC/BMP Laboratory Tests 08/15/20 06:13 SANDRA OLIVO MD Aug 15, 2020 11:44
[2020-08-22 21:07] LABS: Ca Ox Monohydrate 100 % (.); Size 4x3 mm (.)
== END 2020-08-15 11:30 | disposition home or self-care (01) ==
LOC: M ED 07:42 → M ED INP 07:43 → ENRESERV 14:09 → M MS5PR 15:25
PROVIDERS: ADMIT Internal Medicine Nephrology; ATTEND Internal Medicine Nephrology
DX: N20.1 Calculus of ureter (principal); C67.9 Malignant neoplasm of bladder, unspecified; N13.39 Other hydronephrosis; N50.811 Right testicular pain; N50.89 Other specified disorders of the male genital organs; R10.30 Lower abdominal pain, unspecified; E78.5 Hyperlipidemia, unspecified; G47.33 Obstructive sleep apnea (adult) (pediatric); Z87.442 Personal history of urinary calculi; Z88.0 Allergy status to penicillin; Z79.899 Other long term (current) drug therapy; Z87.891 Personal history of nicotine dependence
CPT/HCPCS: 36415; 52234; 52332; 52352; 74177; 74420; 76775; 76870; 80047; 80053; 80076; 81001; 82365; 83690; 85025; 87631; 88300; 88305; 93976; 96361; 96374; 96375; 96376; 99284; C1769; C1894; C2617; G0378; J0131; J0690; J1100; J1885; J2250; J2405; J3010; Q9961; Q9967

== ENCOUNTER → 2020-12-02 | Outpatient (REF) | payer MEDICARE, BC | LOC: M SMT 18:28 | PROVIDERS: ATTEND Urology | DX: C67.9 Malignant neoplasm of bladder, unspecified (principal) ==

== ENCOUNTER → 2021-02-26 | Outpatient (CLI) | payer MEDICARE, BC | LOC: M PLALAB 07:18 | PROVIDERS: ATTEND Urology | DX: Z12.5 Encounter for screening for malignant neoplasm of prostate (principal) | CPT/HCPCS: 36415; G0103 ==

== ENCOUNTER → 2021-03-07 | Outpatient (REF) | payer MEDICARE, BC | LOC: M SMT 18:38 | PROVIDERS: ATTEND Urology | DX: C67.9 Malignant neoplasm of bladder, unspecified (principal) ==

== ENCOUNTER → 2021-06-09 | Outpatient (REF) | payer MEDICARE | LOC: M SMT 17:11 | PROVIDERS: ATTEND Urology | DX: C67.9 Malignant neoplasm of bladder, unspecified (principal) ==

== ENCOUNTER → 2021-09-08 | Outpatient (REF) | payer MEDICARE | LOC: M SMT 13:20 | PROVIDERS: ATTEND Urology | DX: C67.9 Malignant neoplasm of bladder, unspecified (principal) ==

== ENCOUNTER → 2021-12-02 | Outpatient (CLI) | payer MEDICARE ==
[2021-12-02 11:14] LABS: BASO % 0.8 % (0.0-1.0); EOS # 0.1 10^3/uL (0.0-0.5); EOS % 2.8 % (0.0-3.0); HEMATOCRIT 45.1 % (42.0-52.0); HEMOGLOBIN 15.3 g/dl (13.5-17.5); LYMPH # 1.7 10^3/uL (1.5-5.0); LYMPH % 33.7 % (24.0-44.0); MEAN CORPUSCULAR HGB CONC 33.9 g/dl (32.0-36.5); MEAN CORPUSCULAR VOLUME 91.5 fl (80.0-96.0); MONO # 0.4 10^3/uL (0.0-0.8); MONO % 7.1 % (2.0-8.0); NEUTROPHILS # 2.7 10^3/uL (1.5-8.5); NEUTROPHILS % 55.2 % (36.0-66.0); PLATELET COUNT, AUTOMATED 162 10^3/uL (150-450); RED BLOOD COUNT 4.93 10^6/uL (4.30-6.10)
[2021-12-02 13:05] LABS: ALBUMIN 3.8 GM/DL (3.2-5.2); ALT/SGPT 19 U/L (12-78); BILIRUBIN,TOTAL 0.8 MG/DL (0.2-1.0); BLOOD UREA NITROGEN 15 MG/DL (7-18); CALCIUM LEVEL 8.9 MG/DL (8.8-10.2); CARBON DIOXIDE LEVEL 28 MEQ/L (21-32); CHLORIDE LEVEL 106 MEQ/L (98-107); CHOLESTEROL LEVEL 171 MG/DL (<200); CHOLESTEROL RISK RATIO 3.886 (<5); CREATININE FOR GFR 1.11 MG/DL (0.70-1.30); FREE T4 1.06 NG/DL (0.76-1.46); GLOMERULAR FILTRATION RATE > 60.0 (>42); GLUCOSE, FASTING 100 MG/DL (70-100); HDL CHOLESTEROL 44 MG/DL (>40); LDL CHOLESTEROL 116 MG/DL (<100); NON-HDL-C 127 MG/DL; POTASSIUM SERUM 4.5 MEQ/L (3.5-5.1); SODIUM LEVEL 138 MEQ/L (136-145); THYROID STIMULATING HORMONE 0.713 uIU/ML (0.358-3.740); TOTAL PROTEIN 7.4 GM/DL (6.4-8.2); TRIGLYCERIDES LEVEL 57 MG/DL (<150)
[2021-12-03 23:10] LABS: PSA TOTAL 3.6 ng/mL (0.0-4.0)
== END ==
LOC: M PLALAB 08:47
PROVIDERS: ATTEND Family Medicine
DX: K21.9 Gastro-esophageal reflux disease without esophagitis (principal); Z85.51 Personal history of malignant neoplasm of bladder; E78.5 Hyperlipidemia, unspecified

== ENCOUNTER → 2022-03-16 | Outpatient (REF) | payer MEDICARE | LOC: M SMT 12:58 | PROVIDERS: ATTEND Urology | DX: C67.9 Malignant neoplasm of bladder, unspecified (principal) ==

== ENCOUNTER → 2022-03-23 | Outpatient (REF) | payer MEDICARE | LOC: M PLALAB 13:00 | PROVIDERS: ATTEND Urology | DX: Z12.5 Encounter for screening for malignant neoplasm of prostate (principal) | CPT/HCPCS: 36415; G0103 ==

== ENCOUNTER → 2022-12-09 | Outpatient (CLI) | payer MEDICARE ==
[2022-12-09 11:44] LABS: BASO % 0.7 % (0.0-1.0); EOS # 0.2 10^3/uL (0.0-0.5); EOS % 3.7 % (0.0-3.0); HEMATOCRIT 43.7 % (42.0-52.0); HEMOGLOBIN 15.2 g/dl (13.5-17.5); LYMPH # 1.8 10^3/uL (1.5-5.0); LYMPH % 38.3 % (24.0-44.0); MEAN CORPUSCULAR HEMOGLOBIN 32.8 pg (27.0-33.0); MEAN CORPUSCULAR HGB CONC 34.8 g/dl (32.0-36.5); MEAN CORPUSCULAR VOLUME 94.2 fl (80.0-96.0); MONO # 0.3 10^3/uL (0.0-0.8); MONO % 7.2 % (2.0-8.0); NEUTROPHILS # 2.3 10^3/uL (1.5-8.5); NEUTROPHILS % 49.9 % (36.0-66.0); PLATELET COUNT, AUTOMATED 157 10^3/uL (150-450); RED BLOOD COUNT 4.64 10^6/uL (4.30-6.10); WHITE BLOOD COUNT 4.6 10^3/uL (4.0-10.0)
[2022-12-09 12:16] LABS: FREE T4 0.95 NG/DL (0.89-1.76)
[2022-12-09 12:17] LABS: ALBUMIN 4.2 G/DL (3.2-5.2); ALKALINE PHOSPHATASE 63 U/L (46-116); ALT/SGPT 14 U/L (7.0-40); AST/SGOT 15 U/L (<34); BILIRUBIN,TOTAL 1.5 MG/DL (0.3-1.2); BLOOD UREA NITROGEN 11 MG/DL (9-23); CALCIUM LEVEL 9.1 MG/DL (8.3-10.6); CARBON DIOXIDE LEVEL 28 MMOL/L (20-31); CHLORIDE LEVEL 105 MMOL/L (98-107); CHOLESTEROL LEVEL 187 MG/DL (<200); CREATININE FOR GFR 0.96 MG/DL (0.70-1.30); GLOMERULAR FILTRATION RATE > 60.0 (>42); GLUCOSE, FASTING 93 MG/DL (74-106); HDL CHOLESTEROL 49.1 MG/DL (>40); LDL CHOLESTEROL 122.1 MG/DL (<100); NON-HDL-C 137.9 MG/DL; POTASSIUM SERUM 4.3 MMOL/L (3.5-5.1); SODIUM LEVEL 141 MMOL/L (136-145); THYROID STIMULATING HORMONE 1.019 uIU/ML (0.55-4.78); TOTAL PROTEIN 7.1 G/DL (5.7-8.2); TRIGLYCERIDES LEVEL 79 MG/DL (<150)
[2022-12-10 23:07] LABS: PSA TOTAL 0.6 ng/mL (0.0-4.0)
== END ==
LOC: M PLALAB 09:19
PROVIDERS: ATTEND Nurse Practitioner Adult Health
DX: E78.5 Hyperlipidemia, unspecified (principal); G47.39 Other sleep apnea; Z12.5 Encounter for screening for malignant neoplasm of prostate

== ENCOUNTER 2023-09-18 10:20 | Emergency (ER) | payer MEDICARE ==
[~2023-09-18] VITALS: Ht 177.8 cm; Wt 84.1 kg
[2023-09-18] MEDS: NS 1,000 ML IV ONE (11:08)
[2023-09-18 11:12] LABS: HEMOGLOBIN 14.5 g/dl (13.5-17.5); LYMPH # 0.7 10^3/uL (1.5-5.0); LYMPH % 10.3 % (24.0-44.0); MEAN CORPUSCULAR HEMOGLOBIN 31.4 pg (27.0-33.0); MEAN CORPUSCULAR HGB CONC 35.4 g/dl (32.0-36.5); MEAN CORPUSCULAR VOLUME 88.7 fl (80.0-96.0); MONO # 0.4 10^3/uL (0.0-0.8); NEUTROPHILS # 6.1 10^3/uL (1.5-8.5); NEUTROPHILS % 84.4 % (36.0-66.0); PLATELET COUNT, AUTOMATED 146 10^3/uL (150-450); RED BLOOD COUNT 4.62 10^6/uL (4.30-6.10); WHITE BLOOD COUNT 7.2 10^3/uL (4.0-10.0)
[2023-09-18] MEDS: ACETAMINOPHEN TAB 650MG DOSE (2X325MG) PO ONE (11:19)
[2023-09-18 11:36] LABS: LDH LACTATE DEHYDROGENASE 245 U/L (120-246)
[2023-09-18 11:37] LABS: ALBUMIN 3.4 G/DL (3.2-5.2); ALKALINE PHOSPHATASE 63 U/L (46-116); ALT/SGPT 20 U/L (7.0-40); AST/SGOT 42 U/L (<34); BILIRUBIN,TOTAL 1.1 MG/DL (0.3-1.2); BLOOD UREA NITROGEN 15 MG/DL (9-23); CALCIUM LEVEL 8.3 MG/DL (8.3-10.6); CARBON DIOXIDE LEVEL 23 MMOL/L (20-31); CHLORIDE LEVEL 104 MMOL/L (98-107); CREATININE FOR GFR 0.98 MG/DL (0.70-1.30); GLOMERULAR FILTRATION RATE > 60.0 (>42); GLUCOSE, FASTING 126 MG/DL (74-106); MAGNESIUM LEVEL 1.7 MG/DL (1.8-2.4); POTASSIUM SERUM 3.7 MMOL/L (3.5-5.1); SODIUM LEVEL 140 MMOL/L (136-145); TOTAL PROTEIN 6.5 G/DL (5.7-8.2)
[2023-09-18 11:39] LABS: FERRITIN 1236.6 NG/ML (10.5-307.3)
[2023-09-18 11:43] LABS: PROCALCITONIN 0.13 ng/ml
[2023-09-18] MEDS ORDERED: DOXY100C82 PO (15:21)
[2023-09-18 15:30] VITALS: BP 130/70; TEMP 99.4; O2SAT 95
[2023-09-18] MEDS: DOXYCYCLINE HYCLATE 100MG TABLET PO ONE (15:30)
[2023-09-21] MEDS ORDERED: DOXY-443 PO (11:17)
== END 2023-09-18 15:39 | disposition home or self-care (01) ==
LOC: M ED 10:20 → EDBD 10:20 → M ED 15:39
DX: U07.1 COVID-19 (principal); R11.0 Nausea; R19.7 Diarrhea, unspecified; J18.9 Pneumonia, unspecified organism; F17.210 Nicotine dependence, cigarettes, uncomplicated; Z88.0 Allergy status to penicillin; Z79.1 Long term (current) use of non-steroidal anti-inflammatories (NSAID); Z79.2 Long term (current) use of antibiotics; Z79.899 Other long term (current) drug therapy

== ENCOUNTER 2023-09-21 07:37 | Inpatient (IN) | payer MEDICARE ==
[~2023-09-21] VITALS: Ht 177.8 cm; Wt 84.9 kg
[2023-09-21] VITALS (11 sets, daily range): BP systolic 121–136; BP diastolic 71–75; TEMP 97.9–98.6; O2SAT 84–99
[~2023-09-21 07:37] MED LIST changes: +DOXY100C82 PO
[2023-09-21] MEDS: DOCUSATE SODIUM 100MG CAPSULE PO SCH (09:00)
[2023-09-21] MEDS: RIVAROXABAN 10MG TAB (XARELTO) PO SCH (09:00)
[2023-09-21 09:13] LABS: HEMATOCRIT 39.2 % (42.0-52.0); HEMOGLOBIN 13.9 g/dl (13.5-17.5); LYMPH # 0.6 10^3/uL (1.5-5.0); LYMPH % 7.8 % (24.0-44.0); MEAN CORPUSCULAR HEMOGLOBIN 32.2 pg (27.0-33.0); MEAN CORPUSCULAR HGB CONC 35.5 g/dl (32.0-36.5); MEAN CORPUSCULAR VOLUME 90.7 fl (80.0-96.0); MONO # 0.6 10^3/uL (0.0-0.8); MONO % 7.5 % (2.0-8.0); NEUTROPHILS # 6.2 10^3/uL (1.5-8.5); PLATELET COUNT, AUTOMATED 210 10^3/uL (150-450); RED BLOOD COUNT 4.32 10^6/uL (4.30-6.10); WHITE BLOOD COUNT 7.4 10^3/uL (4.0-10.0)
[2023-09-21 09:16] LABS: ABG BASE EXCESS 1.7 (-2.0-2.0); ABG HCO3 24.4 MMOL/L (22.0-26.0); ABG O2 SATURATION 93.2 % (95.0-99.0); ABG PARTIAL PRESSURE CO2 32.7 mmHg (35.0-45.0); ABG PARTIAL PRESSURE O2 62.4 mmHg (75.0-100.0); ABG STANDARD HCO3 25.8 MMOL/L. (22.0-26.0); ABG TOTAL CO2 25.4 MMOL/L (23.0-31.0)
[2023-09-21 10:10] LABS: BLOOD UREA NITROGEN 18 MG/DL (9-23); CALCIUM LEVEL 8.8 MG/DL (8.3-10.6); CARBON DIOXIDE LEVEL 26 MMOL/L (20-31); CHLORIDE LEVEL 106 MMOL/L (98-107); CREATININE FOR GFR 0.87 MG/DL (0.70-1.30); GLOMERULAR FILTRATION RATE > 60.0 (>42); GLUCOSE, FASTING 115 MG/DL (74-106); POTASSIUM SERUM 3.4 MMOL/L (3.5-5.1); SODIUM LEVEL 141 MMOL/L (136-145)
[2023-09-21] MEDS: LevoFLOXacin 750 MG TABLET PO ONE (10:48)
[2023-09-21] MEDS: dexAMETHasone 20MG/5ML VIAL IV ONE (10:48)
[2023-09-21] MEDS ORDERED: ACET650T61 PO (11:17)
[2023-09-21] MEDS ORDERED: BENZ200C70 PO (11:17)
[2023-09-21] MEDS ORDERED: ALBU8.5H INH (11:17)
[2023-09-21] MEDS ORDERED: MOLN200C PO (11:17)
[2023-09-21] MEDS ORDERED: DOXY-323 PO (11:17)
[2023-09-21] MEDS ORDERED: HOME MED LIST COMPLETE! XX SCH (11:20)
[2023-09-21] MEDS ORDERED: KETOROLAC 30 MG/ML 1ML VIAL IV PRN ×2 (11:35)
[2023-09-21] MEDS ORDERED: MOM 30ML SUSPENSION UDC PO PRN (11:35)
[2023-09-21 11:37] LABS: PROCALCITONIN 0.14 ng/ml
[2023-09-21] MEDS ORDERED: AZITHROMYCIN 250MG TABLET PO SCH ×2 (12:00→21:00)
[2023-09-21] MEDS: guaiFENesin/CODEINE SYRUP 5 ML UDC PO SCH (12:02)
[2023-09-21 12:13] LABS: ALBUMIN 2.5 G/DL (3.2-5.2); ALKALINE PHOSPHATASE 61 U/L (46-116); ALT/SGPT 33 U/L (7.0-40); AST/SGOT 70 U/L (<34); BILIRUBIN,DIRECT 0.4 MG/DL (<0.4); BILIRUBIN,TOTAL 1.1 MG/DL (0.3-1.2); TOTAL PROTEIN 6.2 G/DL (5.7-8.2)
[2023-09-21 12:43] LABS: INR 1.19; PROTHROMBIN TIME 14.7 SECONDS (12.5-14.5)
[2023-09-21] MEDS: REMDESIVIR 200 MG in NS 250 ML IV ONE (13:30)
[2023-09-21] MEDS: IPRATROPIUM 0.5MG/ALBUTEROL 2.5MG INH SOL UD 3ML (DUONEB) INH SCH (15:28)
[2023-09-21] MEDS ORDERED: cefTRIAXone SOD 1 GM in D5W MINI-BAG PLUS 50 ML IV SCH (21:00)
[2023-09-21] MEDS: ALBUTEROL SULFATE 2.5MG/0.5ML INH NEB SOLN NEB PRN (23:29)
[2023-09-22] VITALS (8 sets, daily range): BP systolic 130–132; BP diastolic 71–74; TEMP 98.1–98.2; O2SAT 86–99
[2023-09-22 06:20] LABS: HEMATOCRIT 40.2 % (42.0-52.0); HEMOGLOBIN 13.8 g/dl (13.5-17.5); MEAN CORPUSCULAR HEMOGLOBIN 31.1 pg (27.0-33.0); MEAN CORPUSCULAR HGB CONC 34.3 g/dl (32.0-36.5); MEAN CORPUSCULAR VOLUME 90.5 fl (80.0-96.0); PLATELET COUNT, AUTOMATED 265 10^3/uL (150-450); RED BLOOD COUNT 4.44 10^6/uL (4.30-6.10); WHITE BLOOD COUNT 5.6 10^3/uL (4.0-10.0)
[2023-09-22 06:46] LABS: BLOOD UREA NITROGEN 20 MG/DL (9-23); CALCIUM LEVEL 8.6 MG/DL (8.3-10.6); CARBON DIOXIDE LEVEL 26 MMOL/L (20-31); CHLORIDE LEVEL 104 MMOL/L (98-107); CREATININE FOR GFR 0.86 MG/DL (0.70-1.30); GLOMERULAR FILTRATION RATE > 60.0 (>42); GLUCOSE, FASTING 139 MG/DL (74-106); POTASSIUM SERUM 3.5 MMOL/L (3.5-5.1); SODIUM LEVEL 141 MMOL/L (136-145)
[2023-09-22] MEDS: AZITHROMYCIN 250MG TABLET PO SCH (09:13)
[2023-09-22] MEDS: cefTRIAXone SOD 1 GM in D5W MINI-BAG PLUS 50 ML IV SCH (09:14)
[2023-09-22] MEDS: PANTOPRAZOLE 40MG TAB (PROTONIX) PO SCH (11:45)
[2023-09-22] MEDS: REMDESIVIR 100 MG in NS 250 ML IV SCH (13:17)
[2023-09-22] MEDS: CEPACOL LOZENGE PO PRN (15:17)
[2023-09-22] MEDS: guaiFENesin SYRUP 200MG 10ML UDC PO SCH (18:35)
[2023-09-23] VITALS (17 sets, daily range): BP systolic 110–136; BP diastolic 59–74; TEMP 98.6–99.5; O2SAT 85–99
[2023-09-23 07:35] LABS: HEMATOCRIT 37.4 % (42.0-52.0); HEMOGLOBIN 13.3 g/dl (13.5-17.5); MEAN CORPUSCULAR HEMOGLOBIN 31.4 pg (27.0-33.0); MEAN CORPUSCULAR HGB CONC 35.6 g/dl (32.0-36.5); MEAN CORPUSCULAR VOLUME 88.4 fl (80.0-96.0); PLATELET COUNT, AUTOMATED 307 10^3/uL (150-450); RED BLOOD COUNT 4.23 10^6/uL (4.30-6.10); WHITE BLOOD COUNT 9.2 10^3/uL (4.0-10.0)
[2023-09-23 08:01] LABS: BLOOD UREA NITROGEN 20 MG/DL (9-23); CALCIUM LEVEL 8.3 MG/DL (8.3-10.6); CARBON DIOXIDE LEVEL 26 MMOL/L (20-31); CHLORIDE LEVEL 103 MMOL/L (98-107); GLOMERULAR FILTRATION RATE > 60.0 (>42); GLUCOSE, FASTING 127 MG/DL (74-106); POTASSIUM SERUM 3.4 MMOL/L (3.5-5.1); SODIUM LEVEL 140 MMOL/L (136-145)
[2023-09-23 10:44] LABS: ABG BASE EXCESS 0.6 (-2.0-2.0); ABG HCO3 19.8 MMOL/L (22.0-26.0); ABG O2 SATURATION 93.4 % (95.0-99.0); ABG PARTIAL PRESSURE CO2 20.5 mmHg (35.0-45.0); ABG PARTIAL PRESSURE O2 55.7 mmHg (75.0-100.0); ABG STANDARD HCO3 24.9 MMOL/L. (22.0-26.0); ABG TOTAL CO2 20.4 MMOL/L (23.0-31.0)
[2023-09-23 10:45] LABS: ABG pH (ARTERIAL) 7.603 UNITS (7.350-7.450)
[2023-09-23 10:48] LABS: PROCALCITONIN 0.09 ng/ml
[2023-09-23] MEDS: LORazepam 2 MG/ML 1ML VIAL IV STA (11:19)
[2023-09-23] MEDS: NS 1,000 ML IV SCH (11:24)
[2023-09-23] MEDS ORDERED: ISOVUE-370 76% 100ML VIAL As Ordered ONE (11:32)
[2023-09-23] MEDS: POTASSIUM CHLORIDE 10% LIQ 20MEQ/15ML UDC PO ONE (12:40)
[2023-09-23] MEDS: BARICITINIB 2MG TABLET (OLUMIANT) FOR EUA PO SCH (12:45)
[2023-09-23] MEDS: ENOXAPARIN 80MG/0.8ML SYRINGE (J1650 PER 10MG) SC SCH (13:44)
[2023-09-23 14:42] LABS: ABG BASE EXCESS -0.9 (-2.0-2.0); ABG HCO3 21.5 MMOL/L (22.0-26.0); ABG O2 SATURATION 97.6 % (95.0-99.0); ABG PARTIAL PRESSURE CO2 29.6 mmHg (35.0-45.0); ABG PARTIAL PRESSURE O2 98.7 mmHg (75.0-100.0); ABG STANDARD HCO3 23.7 MMOL/L. (22.0-26.0); ABG TOTAL CO2 22.4 MMOL/L (23.0-31.0); ABG pH (ARTERIAL) 7.479 UNITS (7.350-7.450)
[2023-09-24] VITALS (25 sets, daily range): BP systolic 98–119; BP diastolic 55–73; TEMP 97.3–98.5; O2SAT 91–99
[2023-09-24] MEDS ORDERED: QUEtiapine FUMARATE 12.5 MG HALF-TAB PO PRN (02:20)
[2023-09-24 04:53] LABS: HEMATOCRIT 35.8 % (42.0-52.0); HEMOGLOBIN 12.7 g/dl (13.5-17.5); MEAN CORPUSCULAR HGB CONC 35.5 g/dl (32.0-36.5); MEAN CORPUSCULAR VOLUME 90.2 fl (80.0-96.0); PLATELET COUNT, AUTOMATED 312 10^3/uL (150-450); RED BLOOD COUNT 3.97 10^6/uL (4.30-6.10); WHITE BLOOD COUNT 6.8 10^3/uL (4.0-10.0)
[2023-09-24 05:17] LABS: BLOOD UREA NITROGEN 22 MG/DL (9-23); CALCIUM LEVEL 7.8 MG/DL (8.3-10.6); CARBON DIOXIDE LEVEL 27 MMOL/L (20-31); CHLORIDE LEVEL 107 MMOL/L (98-107); CREATININE FOR GFR 0.84 MG/DL (0.70-1.30); GLOMERULAR FILTRATION RATE > 60.0 (>42); GLUCOSE, FASTING 126 MG/DL (74-106); POTASSIUM SERUM 3.7 MMOL/L (3.5-5.1); SODIUM LEVEL 141 MMOL/L (136-145)
[2023-09-24] MEDS: ACETAMINOPHEN TAB 650MG DOSE (2X325MG) PO PRN (08:33)
[2023-09-24 08:39] LABS: ALBUMIN 2.3 G/DL (3.2-5.2); ALKALINE PHOSPHATASE 57 U/L (46-116); ALT/SGPT 40 U/L (7.0-40); AST/SGOT 43 U/L (<34); BILIRUBIN,DIRECT 0.4 MG/DL (<0.4); BILIRUBIN,TOTAL 0.9 MG/DL (0.3-1.2); TOTAL PROTEIN 5.3 G/DL (5.7-8.2)
[2023-09-24] MEDS: guaiFENesin/CODEINE SYRUP 5 ML UDC PO SCH ×2 (11:09→18:03)
[2023-09-24] MEDS ORDERED: guaiFENesin SYRUP 200MG 10ML UDC PO PRN (14:00)
[2023-09-25 04:08] LABS: HEMATOCRIT 37.7 % (42.0-52.0); HEMOGLOBIN 13.1 g/dl (13.5-17.5); MEAN CORPUSCULAR HEMOGLOBIN 31.6 pg (27.0-33.0); MEAN CORPUSCULAR HGB CONC 34.7 g/dl (32.0-36.5); MEAN CORPUSCULAR VOLUME 90.8 fl (80.0-96.0); PLATELET COUNT, AUTOMATED 350 10^3/uL (150-450); RED BLOOD COUNT 4.15 10^6/uL (4.30-6.10); WHITE BLOOD COUNT 6.9 10^3/uL (4.0-10.0)
[2023-09-25 04:29] LABS: BLOOD UREA NITROGEN 21 MG/DL (9-23); CALCIUM LEVEL 7.7 MG/DL (8.3-10.6); CARBON DIOXIDE LEVEL 28 MMOL/L (20-31); CHLORIDE LEVEL 108 MMOL/L (98-107); CREATININE FOR GFR 0.91 MG/DL (0.70-1.30); GLOMERULAR FILTRATION RATE > 60.0 (>42); GLUCOSE, FASTING 110 MG/DL (74-106); SODIUM LEVEL 142 MMOL/L (136-145)
[2023-09-25 06:00] VITALS: O2SAT 90
[2023-09-25 08:00] VITALS: BP 140/79; TEMP 98.6; O2SAT 91
[2023-09-25 12:00] VITALS: BP 110/53; TEMP 98.9; O2SAT 92
[2023-09-25 15:55] VITALS: BP 127/70; TEMP 98.1; O2SAT 92
[2023-09-25] MEDS: guaiFENesin/CODEINE SYRUP 5 ML UDC PO SCH (18:35)
[2023-09-25] MEDS: COMBIVENT RESPIMAT 100-20MCG INHALER 4GM INH SCH (20:15)
[2023-09-25 22:00] VITALS: BP 113/64; TEMP 98.6; O2SAT 93
[2023-09-26 06:00] VITALS: BP 120/69; TEMP 98.6; O2SAT 86
[2023-09-26 06:03] LABS: HEMATOCRIT 36.5 % (42.0-52.0); HEMOGLOBIN 12.7 g/dl (13.5-17.5); MEAN CORPUSCULAR HEMOGLOBIN 31.3 pg (27.0-33.0); MEAN CORPUSCULAR HGB CONC 34.8 g/dl (32.0-36.5); MEAN CORPUSCULAR VOLUME 89.9 fl (80.0-96.0); PLATELET COUNT, AUTOMATED 329 10^3/uL (150-450); RED BLOOD COUNT 4.06 10^6/uL (4.30-6.10); WHITE BLOOD COUNT 5.7 10^3/uL (4.0-10.0)
[2023-09-26 06:27] LABS: BLOOD UREA NITROGEN 17 MG/DL (9-23); CALCIUM LEVEL 7.9 MG/DL (8.3-10.6); CARBON DIOXIDE LEVEL 27 MMOL/L (20-31); CHLORIDE LEVEL 107 MMOL/L (98-107); CREATININE FOR GFR 0.83 MG/DL (0.70-1.30); GLOMERULAR FILTRATION RATE > 60.0 (>42); GLUCOSE, FASTING 106 MG/DL (74-106); POTASSIUM SERUM 3.7 MMOL/L (3.5-5.1); SODIUM LEVEL 142 MMOL/L (136-145)
[2023-09-26 06:33] VITALS: O2SAT 94
[2023-09-26 08:40] LABS: PROCALCITONIN 0.08 ng/ml
[2023-09-26] MEDS ORDERED: guaiFENesin/CODEINE SYRUP 5 ML UDC PO PRN (12:30)
[2023-09-26 14:00] VITALS: BP 121/64; TEMP 98.1; O2SAT 93
[2023-09-26 21:11] VITALS: BP 121/76; TEMP 98.2; O2SAT 91
[2023-09-27 05:44] VITALS: BP 124/71; TEMP 97.9; O2SAT 91
[2023-09-27 08:01] LABS: ALBUMIN 2.6 G/DL (3.2-5.2); BILIRUBIN,DIRECT 0.6 MG/DL (<0.4); BILIRUBIN,TOTAL 1.4 MG/DL (0.3-1.2); TOTAL PROTEIN 5.7 G/DL (5.7-8.2)
[2023-09-27] MEDS ORDERED: GUAI100L31 PO (09:12)
[2023-09-27] MEDS ORDERED: DEXA6TAB PO (09:15)
[2023-09-27 19:07] LABS: BODY FLUID CULTURE Not indicated. (.); LEGIONELLA ANTIGEN URINE Negative (Negative); ORGANISM ID Not indicated. (.); SPECIMEN SOURCE Urine (.); URINE STREP PNEUMONIAE ANTIGEN Negative (Negative)
== END 2023-09-27 11:55 | disposition home health service (06) | DRG 177 ==
LOC: M ED 07:37 → EDBD 07:37 → M ED INP 11:31 → ENRESERV 13:29 → M MSPAV 13:57 → M ICU 09-23 12:10 → M MSPAV 09-25 15:55
PROVIDERS: ADMIT Student in an Organized Health Care Education/Training Program; ATTEND Student in an Organized Health Care Education/Training Program
PROC: XW033E5 Introduction of Remdesivir Anti-infective into Peripheral Vein, Percutaneous Approach, New Technology Group 5 (ICD-10-PCS; principal; 2023-09-21)
PROC: 3E0333Z Introduction of Anti-inflammatory into Peripheral Vein, Percutaneous Approach (ICD-10-PCS; 2023-09-22)
DX: U07.1 COVID-19 (principal); J12.82 Pneumonia due to coronavirus disease 2019; J96.01 Acute respiratory failure with hypoxia; E87.3 Alkalosis; E78.5 Hyperlipidemia, unspecified; G47.33 Obstructive sleep apnea (adult) (pediatric); K59.00 Constipation, unspecified; F41.9 Anxiety disorder, unspecified; R41.0 Disorientation, unspecified; R53.1 Weakness; M48.00 Spinal stenosis, site unspecified; Z79.899 Other long term (current) drug therapy; Z85.59 Personal history of malignant neoplasm of other urinary tract organ; Z87.442 Personal history of urinary calculi; Z87.891 Personal history of nicotine dependence; Z88.0 Allergy status to penicillin; Z28.310 Unvaccinated for COVID-19

== ENCOUNTER → 2023-10-14 | Outpatient (CLI) | payer MEDICARE ==
[~2023-10-14] MED LIST changes: +ACET650T61 PO; +ALBU8.5H INH; +BENZ200C70 PO; +DEXA6TAB PO; +DOXY-323 PO; +GUAI100L31 PO; +MOLN200C PO
[2023-10-14 10:04] LABS: BASO % 0.4 % (0.0-1.0); EOS # 0.2 10^3/uL (0.0-0.5); EOS % 3.2 % (0.0-3.0); HEMATOCRIT 41.1 % (42.0-52.0); LYMPH # 1.2 10^3/uL (1.5-5.0); LYMPH % 24.5 % (24.0-44.0); MEAN CORPUSCULAR HGB CONC 34.1 g/dl (32.0-36.5); MEAN CORPUSCULAR VOLUME 93.8 fl (80.0-96.0); MONO # 0.3 10^3/uL (0.0-0.8); MONO % 7.2 % (2.0-8.0); NEUTROPHILS % 64.5 % (36.0-66.0); PLATELET COUNT, AUTOMATED 146 10^3/uL (150-450); RED BLOOD COUNT 4.38 10^6/uL (4.30-6.10); WHITE BLOOD COUNT 4.7 10^3/uL (4.0-10.0)
[2023-10-14 10:35] LABS: BLOOD UREA NITROGEN 12 MG/DL (9-23); CARBON DIOXIDE LEVEL 29 MMOL/L (20-31); CHLORIDE LEVEL 106 MMOL/L (98-107); CREATININE FOR GFR 1.03 MG/DL (0.70-1.30); GLOMERULAR FILTRATION RATE > 60.0 (>42); GLUCOSE, FASTING 112 MG/DL (74-106); POTASSIUM SERUM 4.2 MMOL/L (3.5-5.1); SODIUM LEVEL 140 MMOL/L (136-145)
== END ==
LOC: M PLALAB 07:15
PROVIDERS: ATTEND Nurse Practitioner Adult Health
DX: J18.9 Pneumonia, unspecified organism (principal)

== ENCOUNTER → 2023-12-21 | Outpatient (CLI) | payer MEDICARE ==
[~2023-12-21] MED LIST changes: +ONDA-282 PO; -ONDA4TAB6 PO
[2023-12-21 10:33] LABS: BASO % 0.3 % (0.0-1.0); EOS # 0.2 10^3/uL (0.0-0.5); EOS % 2.9 % (0.0-3.0); HEMATOCRIT 44.7 % (42.0-52.0); LYMPH # 1.8 10^3/uL (1.5-5.0); LYMPH % 30.5 % (24.0-44.0); MEAN CORPUSCULAR HEMOGLOBIN 31.6 pg (27.0-33.0); MEAN CORPUSCULAR HGB CONC 33.6 g/dl (32.0-36.5); MEAN CORPUSCULAR VOLUME 94.3 fl (80.0-96.0); MONO # 0.5 10^3/uL (0.0-0.8); MONO % 8.2 % (2.0-8.0); NEUTROPHILS # 3.4 10^3/uL (1.5-8.5); NEUTROPHILS % 57.9 % (36.0-66.0); PLATELET COUNT, AUTOMATED 208 10^3/uL (150-450); RED BLOOD COUNT 4.74 10^6/uL (4.30-6.10); WHITE BLOOD COUNT 5.9 10^3/uL (4.0-10.0)
[2023-12-21 10:39] LABS: ALBUMIN 3.9 G/DL (3.2-5.2); ALKALINE PHOSPHATASE 73 U/L (46-116); ALT/SGPT 18 U/L (7.0-40); AST/SGOT 17 U/L (<34); BILIRUBIN,TOTAL 0.9 MG/DL (0.3-1.2); BLOOD UREA NITROGEN 13 MG/DL (9-23); CARBON DIOXIDE LEVEL 29 MMOL/L (20-31); CHLORIDE LEVEL 107 MMOL/L (98-107); CHOLESTEROL LEVEL 200 MG/DL (<200); CHOLESTEROL RISK RATIO 4.44 (<5); CREATININE FOR GFR 0.92 MG/DL (0.70-1.30); GLOMERULAR FILTRATION RATE > 60.0 (>42); GLUCOSE, FASTING 103 MG/DL (74-106); LDL CHOLESTEROL 138.6 MG/DL (<100); POTASSIUM SERUM 4.4 MMOL/L (3.5-5.1); PSA SCREENING 4.78 NG/ML (< 4.00); SODIUM LEVEL 141 MMOL/L (136-145); THYROID STIMULATING HORMONE 0.781 uIU/ML (0.55-4.78); TOTAL PROTEIN 6.8 G/DL (5.7-8.2); TRIGLYCERIDES LEVEL 82 MG/DL (<150)
[2023-12-21 10:42] LABS: FREE T4 0.96 NG/DL (0.89-1.76)
== END ==
LOC: M PLALAB 07:28
PROVIDERS: ATTEND Nurse Practitioner Adult Health
DX: Z12.5 Encounter for screening for malignant neoplasm of prostate (principal); E78.00 Pure hypercholesterolemia, unspecified
CPT/HCPCS: 36415; 80053; 80061; 84439; 84443; 85025; G0103

== ENCOUNTER → 2024-01-31 | Outpatient (CLI) | payer MEDICARE ==
[2024-02-02 14:07] LABS: PSA FREE 0.7 ng/mL; PSA TOTAL 2.8 ng/mL (< OR = 4.0)
== END ==
LOC: M PLALAB 08:49
PROVIDERS: ATTEND Urology
DX: R97.20 Elevated prostate specific antigen [PSA] (principal)

== ENCOUNTER → 2024-03-13 | Outpatient (REF) | payer MEDICARE ==
[~2024-03-13] MED LIST changes: -DOXY-323 PO; +DOXY-441 PO
== END ==
LOC: M SMT 12:56
PROVIDERS: ATTEND Urology
DX: C67.9 Malignant neoplasm of bladder, unspecified (principal)

== ENCOUNTER → 2024-03-22 | Outpatient (REF) | payer MEDICARE | LOC: M SFHCDERM 13:13 | PROVIDERS: ATTEND Nurse Practitioner Family | DX: D22.39 Melanocytic nevi of other parts of face (principal); L82.0 Inflamed seborrheic keratosis ==

== ENCOUNTER → 2024-06-19 | Outpatient (CLI) | payer MEDICARE ==
[2024-06-19 14:08] LABS: BASO % 0.9 % (0.0-1.0); EOS # 0.2 10^3/uL (0.0-0.5); EOS % 3.3 % (0.0-3.0); HEMATOCRIT 43.3 % (42.0-52.0); HEMOGLOBIN 14.6 g/dl (13.5-17.5); LYMPH # 1.6 10^3/uL (1.5-5.0); LYMPH % 36.1 % (24.0-44.0); MEAN CORPUSCULAR HEMOGLOBIN 31.6 pg (27.0-33.0); MEAN CORPUSCULAR HGB CONC 33.7 g/dl (32.0-36.5); MEAN CORPUSCULAR VOLUME 93.7 fl (80.0-96.0); MONO # 0.3 10^3/uL (0.0-0.8); MONO % 6.4 % (2.0-8.0); NEUTROPHILS # 2.4 10^3/uL (1.5-8.5); NEUTROPHILS % 53.1 % (36.0-66.0); PLATELET COUNT, AUTOMATED 146 10^3/uL (150-450); RED BLOOD COUNT 4.62 10^6/uL (4.30-6.10); WHITE BLOOD COUNT 4.5 10^3/uL (4.0-10.0)
[2024-06-19 14:28] LABS: ALBUMIN 4.1 G/DL (3.2-5.2); ALKALINE PHOSPHATASE 67 U/L (40-129); ALT/SGPT 12 U/L (7.0-40); AST/SGOT 16 U/L (<34); BILIRUBIN,TOTAL 1.2 MG/DL (0.3-1.2); BLOOD UREA NITROGEN 13 MG/DL (9-23); CALCIUM LEVEL 9.3 MG/DL (8.3-10.6); CARBON DIOXIDE LEVEL 29 MMOL/L (20-31); CHLORIDE LEVEL 105 MMOL/L (98-107); CHOLESTEROL LEVEL 194 MG/DL (<200); CHOLESTEROL RISK RATIO 3.77 (<5); CREATININE FOR GFR 0.92 MG/DL (0.70-1.30); FERRITIN 221.4 NG/ML (10.5-307.3); FREE T4 1.07 NG/DL (0.89-1.76); GLOMERULAR FILTRATION RATE > 60.0 (>42); GLUCOSE, FASTING 80 MG/DL (74-106); HDL CHOLESTEROL 51.4 MG/DL (>40); LDL CHOLESTEROL 128.6 MG/DL (<100); NON-HDL-C 142.6 MG/DL; POTASSIUM SERUM 4.6 MMOL/L (3.5-5.1); SODIUM LEVEL 145 MMOL/L (136-145); THYROID STIMULATING HORMONE 0.929 uIU/ML (0.55-4.78); TOTAL IRON BINDING CAPACITY 280 UG/DL (250-425); TRIGLYCERIDES LEVEL 70 MG/DL (<150)
[2024-06-19 14:29] LABS: IRON (FE) 87 UG/DL (65-175); PERCENT SATURATION 31.1 % (19.7-50.0)
== END ==
LOC: M PLALAB 10:30
PROVIDERS: ATTEND Family Medicine
DX: R63.4 Abnormal weight loss (principal); D50.9 Iron deficiency anemia, unspecified; E78.00 Pure hypercholesterolemia, unspecified

== ENCOUNTER → 2024-08-28 | Outpatient (CLI) | payer MEDICARE ==
[~2024-08-28] MED LIST changes: +DOXY-442 PO; -DOXY100C82 PO
== END ==
LOC: M PLALAB 07:49
PROVIDERS: ATTEND Urology
DX: R97.20 Elevated prostate specific antigen [PSA] (principal)

== ENCOUNTER → 2024-09-18 | Outpatient (REF) | payer MEDICARE ==
[~2024-09-18] MED LIST changes: -FLOM0.4C39 PO; +TAMS-18 PO
== END ==
LOC: M SMT 13:12
PROVIDERS: ATTEND Urology
DX: C67.9 Malignant neoplasm of bladder, unspecified (principal)

== ENCOUNTER → 2024-09-28 | Outpatient (CLI) | payer MEDICARE ==
[~2024-09-28] MED LIST changes: +OCUV1CHW PO; +SAW500CA7 PO; +STOO100C30 PO
[2024-09-28 10:22] LABS: HEMOGLOBIN 15.3 g/dl (13.5-17.5); MEAN CORPUSCULAR HEMOGLOBIN 31.4 pg (27.0-33.0); MEAN CORPUSCULAR VOLUME 92.2 fl (80.0-96.0); PLATELET COUNT, AUTOMATED 173 10^3/uL (150-450); RED BLOOD COUNT 4.88 10^6/uL (4.30-6.10); WHITE BLOOD COUNT 5.3 10^3/uL (4.0-10.0)
[2024-09-28 10:51] LABS: CALCIUM LEVEL 9.2 MG/DL (8.3-10.6); CREATININE FOR GFR 0.97 MG/DL (0.70-1.30); GLOMERULAR FILTRATION RATE 81.4 (>42); POTASSIUM SERUM 4.4 MMOL/L (3.5-5.1)
== END ==
LOC: M PLALAB 07:48
PROVIDERS: ATTEND Urology
DX: Z01.818 Encounter for other preprocedural examination (principal); N39.0 Urinary tract infection, site not specified; C67.9 Malignant neoplasm of bladder, unspecified

== ENCOUNTER 2024-10-06 07:45 | Day surgery (SDC) | payer MEDICARE ==
[~2024-10-06] VITALS: Ht 175.3 cm; Wt 83.4 kg
[~2024-10-06 07:45] MED LIST changes: +ACETAMINOPHEN 1000MG/100ML IV BAG As Ordered ONE; +LIDOCAINE 2% 100MG/5ML SDV (FOR ANES.) As Ordered ONE; +ONDANSETRON 4MG 2ML VIAL As Ordered ONE; +fentaNYL 100 MCG/2 ML INJECTION As Ordered ONE; +propofoL 200 MG/20 ML VIAL As Ordered ONE
[2024-10-06] MEDS: LR 1,000 ML IV SCH (08:54)
[2024-10-06] MEDS ORDERED: ROCURONIUM BROMIDE 50MG/5ML VIAL As Ordered ONE (09:14)
[2024-10-06] MEDS: ceFAZolin SOD 2 GM IV ONCE IV ONE (09:35)
[2024-10-06] MEDS ORDERED: ePHEDrine SULFATE 25 MG/5 ML(5MG/ML) SYRINGE As Ordered ONE (09:53)
[2024-10-06] MEDS ORDERED: SUGAMMADEX SODIUM 500 MG/5 ML VIAL As Ordered ONE (10:03)
[2024-10-06] MEDS ORDERED: KETOROLAC 30 MG/ML 1ML VIAL As Ordered ONE (10:05)
[2024-10-06] MEDS: MITOMYCIN 40MG IN 20ML SWFI SYRINGE INTRAVESIC ONE (10:16)
[2024-10-06] MEDS ORDERED: LR 1,000 ML IV SCH (10:30)
[2024-10-06] MEDS ORDERED: fentaNYL 100 MCG/2 ML INJECTION IV PRN (10:30)
[2024-10-06] MEDS ORDERED: HYDROMORPHONE HCL 0.5 MG/ 0.5 ML SYRINGE IV PRN (10:30)
[2024-10-06] MEDS ORDERED: oxyCODONE 5MG TAB PO PRN (10:30)
[2024-10-06] MEDS ORDERED: METOCLOPRAMIDE INJ 10MG/2ML VIAL IV PRN (10:30)
[2024-10-06 12:28] VITALS: BP 142/71; TEMP 97.1; O2SAT 99
== END 2024-10-06 13:04 | disposition home or self-care (01) ==
LOC: M SDC 07:45
PROVIDERS: ATTEND Urology
DX: C67.9 Malignant neoplasm of bladder, unspecified (principal); E73.9 Lactose intolerance, unspecified; Z88.0 Allergy status to penicillin; Z91.012 Allergy to eggs; Z87.891 Personal history of nicotine dependence
CPT/HCPCS: 52235; 88305; J0131; J0690; J1100; J1885; J2405; J3010; J9280